=== PATIENT | male | born 1980 | race Caucasian/White ===

== ENCOUNTER → 2021-09-12 | Outpatient (CLI) | payer BC ==
--- NOTE | 2021-09-13 06:46 | CT ---
EXAMINATION TYPE: CT abdomen pelvis wo con DATE OF EXAM: 09/12/2021 HISTORY: LLQ pain CT DLP: 1208.9 mGycm. Automated Exposure Control for Dose Reduction was Utilized. TECHNIQUE: CT scan of the abdomen and pelvis is performed without oral or IV contrast. COMPARISON: NONE FINDINGS: Within the limitations of a non-contrast study, the following observations are made. LUNG BASES: No significant abnormality is appreciated. LIVER/GB: No significant abnormality is appreciated. PANCREAS: No significant abnormality is seen. SPLEEN: No significant abnormality is seen. ADRENALS: No significant abnormality is seen. KIDNEYS: No renal stones or hydronephrosis is present bilaterally. Scattered bilateral pelvic phlebol iths. No intraluminal calculus in the bladder. BOWEL: Slightly suboptimal evaluation without enteric contrast. No suspicious small or large bowel di latation. Normal appearing appendix from base of cecum. No significant diverticular disease or CT oscar dence for acute diverticulitis GENITAL ORGANS: No gross abnormality seen. LYMPH NODES: No greater than 1cm abdominal or pelvic lymph nodes are appreciated. OSSEOUS STRUCTURES: Bilateral pars defect L5 level without spondylolisthesis. Mild to moderate lead material handler ior spurring L5-S1 level. Mild facet arthropathy lower lumbar levels. OTHER: No significant additional abnormality is seen. IMPRESSION: No renal stones or hydronephrosis is seen bilaterally. No acute findings evident on nonco ntrast CT to account for patient's symptoms of left lower quadrant pain.
== END | disposition home or self-care (01) ==
LOC: RADCTMAIN 18:16
PROVIDERS: ATTEND Internal Medicine
DX: R10.32 Left lower quadrant pain (principal)
CPT/HCPCS: 74176

== ENCOUNTER 2023-07-18 06:54 | Day surgery (SDC) | payer BC ==
[~2023-07-18 06:54] MED LIST: LACTATED RINGERS 1,000 ML IV SCH; LIDOCAINE 1% (10MG/ML) FOR IV START INTRADERMA PRN
[2023-07-18 07:33] VITALS: RESP 16; TEMP 98.8
[2023-07-18] MEDS ORDERED: PROPOFOL 10 MG/ML 20 ML VIAL IV ONE (07:54)
[2023-07-18] MEDS ORDERED: LIDOCAINE 1% INJ 10MG/ML (20 ML MDV) ONE (07:54)
[2023-07-18] MEDS ORDERED: MIDAZOLAM 2 MG/2 ML VIAL ONE (07:54)
[2023-07-18] MEDS ORDERED: fentaNYL (PF) 50 MCG/ML 2 ML AMP ONE (07:54)
--- NOTE | 2023-07-18 08:16 | P.PCN ---
Date of Procedure: 07/18/23 Procedure(s) Performed: Brief history: Patient is a pleasant 43-year-old white male scheduled for an elective upper endoscopy as well as colonoscopy as a part of evaluation of GERD/change in bowel habits He is on omeprazole 20 mg daily with good control of reflux symptoms. Procedure performed: Esophagogastroduodenoscopy the biopsy . Colonoscopy biopsy Preoperative diagnosis: GERD Change in bowel habits Anesthesia: MAC Procedure: After informed consent was obtained from the patient was brought into the endoscopy unit and IV sedation was administered by anesthesia under continuous monitoring. Initially upper endoscopy was done. The Olympus GF 160 video endoscope was inserted inserted into the mouth and esophagus intubated without any difficulty and was gradually advanced into the stomach and duodenum and carefully examined. The bulb and second part of the duodenum appeared normal. The scope was then withdrawn into the stomach adequately insufflated with air and upon careful examination the antrum had mild gastritis and biopsies were done from this area. Because of the body, cardia and fundus appeared normal. Small gastric polyps noted which were biopsied. The scope was then withdrawn into the esophagus. The GE junction was located at 40 cm to the incisors. It appeared regular with no erythema erosions or ulcerations. Short segment of Guillen's esophagus with 3 mm tongue of Guillen's appearing mucosa possible GE junction that was biopsied. Rest of the esophagus appeared normal. Patient tolerated the procedure well. At this time the patient continued to remain sedation. Initial digital rectal examination was normal. Olympus CF 160 video colonoscope was then inserted into the rectum and gradually advanced to the cecum without any difficulty. Careful examination was performed as the scope was gradually being withdrawn. The prep was excellent. The cecum, ascending colon, transverse colon, descending colon, sigmoid colon and rectum appeared normal. The proximal rectum there was a 3 mm polyp that was removed by cold biopsy. Retroflexion was performed in the rectum and no lesions were noted. Patient tolerated the procedure well. Impression: 1. Upper endoscopy revealed short segment Guillen's esophagus, mild antral gastritis and small gastric polyps 2. Colonoscopy revealed a 3 mm rectal polyp status post cold biopsy and scattered sigmoidal diverticulosis Recommendations: Findings of this examination were discussed with the patient as well as his family. He will continue with omeprazole 20 mg daily and follow antrum reflux measures. If the biopsy reveals Guillen's esophagus he can have a repeat upper endoscopy in 3 years. Recommend repeat colonoscopy in 10 years.
[2023-07-18 08:44] VITALS: BP 113/67; PULSE 68
== END 2023-07-18 08:53 | disposition home or self-care (01) ==
LOC: ORWHC2ENDO 06:54
PROVIDERS: ATTEND Internal Medicine Gastroenterology
DX: K29.50 Unspecified chronic gastritis without bleeding (principal); K21.9 Gastro-esophageal reflux disease without esophagitis; K31.7 Polyp of stomach and duodenum; K22.70 Barrett's esophagus without dysplasia; K57.30 Diverticulosis of large intestine without perforation or abscess without bleeding; K62.1 Rectal polyp; E78.5 Hyperlipidemia, unspecified; Z79.899 Other long term (current) drug therapy
CPT/HCPCS: 88305; 45380; 43239; J2250; J2001; J3010; J2704